=== PATIENT | female | born 1950 | race Caucasian/White ===

== ENCOUNTER → 2018-04-29 15:24 | Outpatient (CLI) | payer MEDICARE, BC, SELFPAY | PROVIDERS: Visit Provider Physician Assistant | DX: R19.7 Diarrhea, unspecified (principal) ==

== ENCOUNTER → 2018-05-02 10:19 | Outpatient (CLI) | payer MEDICARE, BC, SELFPAY ==
[2018-05-02 15:21] LABS: Clostridium Difficile Tox PCR Negative for C. diff
== END ==
PROVIDERS: Visit Provider Physician Assistant
DX: R19.7 Diarrhea, unspecified (principal)
CPT/HCPCS: 87015; 87045; 87177; 87427; 87493; 87899